=== PATIENT | male | born 1980 | race Caucasian/White ===

== ENCOUNTER 2016-11-19 01:50 | Emergency (ER) | payer BC ==
[~2016-11-19] VITALS: Ht 172.7 cm; Wt 74.8 kg
--- NOTE | 2016-11-19 02:00 | NUR ---
to bed 2 ambulatory c/o fever, cough, congestion, chills x3 days. pt aaox4 no acute distress noted, resp even and unlabored. 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
[2016-11-19] MEDS ORDERED: GUAIFENESIN/D-METHORPHAN HB 5 ML UDC ONE (02:15)
[2016-11-19] MEDS ORDERED: ACETAMINOPHEN ES 500 MG TABLET ONE (02:15)
[2016-11-19] MEDS ORDERED: GUAIFENESIN/CODEINE 10 ML UDC PO PRN (02:30)
[2016-11-19] MEDS ORDERED: ACETAMINOPHEN ES 500 MG TABLET PO ONE (02:30)
--- NOTE | 2016-11-19 03:37 | NUR ---
Patient discharged to home in stable condition. Written and verbal after care instructions given. Patient verbalizes understanding of instruction. ambulatory with a steady gait. TEMP- 98.9
[2016-11-19 03:38] VITALS: BP 127/66
[2016-11-19] MEDS ORDERED: GUAIFENESIN/D-METHORPHAN HB 5 ML UDC PO ONE (04:00)
== END 2016-11-19 03:41 | disposition home or self-care (01) ==
LOC: ER 01:53
DX: R05 Cough (principal); R50.9 Fever, unspecified
CPT/HCPCS: 36415; 71010-TC; 85378-TC; A4606; Z7610